=== PATIENT | female | born 1955 | race Caucasian/White ===

== ENCOUNTER 2017-03-11 13:52 | Emergency (ER) | payer SELFPAY ==
[~2017-03-11] VITALS: Ht 182.9 cm; Wt 77.0 kg
[2017-03-11 13:54] VITALS: BP 173/83; PULSE 102; RESP 24; TEMP 98.3; O2SAT 98
--- NOTE | 2017-03-11 14:42 | PD ---
HPI Chief Complaint: Back/ Neck Pain or Injury Time Seen by Provider: 14:28 Travel History International Travel<30 days: No Contact w/Intl Traveler<30days: No Traveled to known affect area: No History of Present Illness HPI 62-year-old female presents for evaluation of lower back pain. 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 She reports that about 14 days ago she lifted something and this caused a twinge of pain in her lower back which resolved. About 10 days ago she began developing left-sided lower back pain that radiates down the posterior left leg. The pain is a sharp shooting pain that is worse with movement, lying down, constant. She denies any additional injuries. Denies bowel or bladder incontinence, saddle anesthesia, abdominal pain, nausea or vomiting, fevers or chills. She was seen at [facility] a few days ago where she reports blood work and urinalysis were performed. She was given a prescription for Bactrim for urinary tract infection. She was given [place] which has not been helping with her symptoms and this prompted reevaluation today. She reports that her dysuria and foul-smelling urine have significantly improved. She has no other complaints. PFSH Past Medical History Autoimmune Disease: Yes Blood Disorders: No Heart Rhythm Problems: No Cancer: No Cardiac Catheterization: No Cardiovascular Problems: Yes (HTN, ) High Cholesterol: No Chest Pain: Yes Congestive Heart Failure: No Coronary Artery Disease: Yes Diabetes: No Genitourinary: No Headaches: Yes Hypertension: No Musculoskeletal: No Neurologic: Yes Psychiatric: No Respiratory: Yes (ASTHMA) Myocardial Infarction: No ?: Not Past Surgical History Abdominal Surgery: No Cardiac Surgery: No Cholecystectomy: Yes Coronary Artery Bypass Graft: No Ear Surgery: No Endocrine Surgery: No Eye Surgery: No Genitourinary Surgery: No Gynecologic Surgery: Yes (UTERINE ABLATION) Oral Surgery: No Pacemaker: No Thoracic Surgery: No Social History Alcohol Use: No Tobacco Use: No Substance Use: No Allergies-Medications (Allergen,Severity, Reaction): Coded Allergies: No Known Allergies (Verified , 03/11/17) Reported Meds & Prescriptions Reported Meds & Active Scripts Active No Active Prescriptions or Reported Medications Review of Systems Except as stated in HPI: all other systems reviewed are Neg Physical Exam Narrative GENERAL: Well-developed well-nourished female who appears to be uncomfortable. SKIN: Warm and dry. No rash, no bruising or soft tissue swelling. HEAD: Atraumatic. Normocephalic. EYES: Pupils equal and round. No scleral icterus. No injection or drainage. ENT: No nasal bleeding or discharge. Mucous membranes pink and moist. NECK: Trachea midline. No JVD. CARDIOVASCULAR: Regular rate and rhythm. No murmur appreciated. RESPIRATORY: No accessory muscle use. Clear to auscultation. Breath sounds equal bilaterally. GASTROINTESTINAL: Abdomen soft, non-tender, nondistended. Hepatic and splenic margins not palpable. MUSCULOSKELETAL: No obvious deformities. Tender to palpation left lumbosacral musculature. There is no tenderness to palpation along the midline spine. The patient has significant pain when attempting to lie down. There is no lower extremity edema. 2+ dorsalis pedis pulse bilaterally. Negative Homans bilaterally. NEUROLOGICAL: Awake and alert. No obvious cranial nerve deficits. Motor grossly within normal limits. Normal speech. PSYCHIATRIC: Appropriate mood and affect; insight and judgment normal. Data Data Last Documented VS Vital Signs Date Time Temp Pulse Resp B/P Pulse Ox O2 Delivery O2 Flow Rate FiO2 03/11/17 13:54 98.3 102 24 173/[address] Lumb Spine W/O Contrast (03/11/17 ) Ketorolac Inj (Toradol Inj) (03/11/17 14:45) Orphenadrine Inj (Norflex Inj) (03/11/17 14:45) MDM Medical Decision Making Medical Screen Exam Complete: Yes Emergency Medical Condition: Yes Medical Record Reviewed: Yes Differential Diagnosis Piriformis syndrome, herniated mucous pulposus, compression fracture, metastasis , AAA, lumbar strain Narrative Course 62-year-old female with 10 days of left-sided lower back pain that radiates down the posterior left leg. CT imaging reveals degenerative changes, dominant abnormality is a left paracentral disc protrusion at L4 to L5 which is likely the etiology of her radicular symptoms. The patient was given a copy of her CT report. She'll be discharged with NSAIDs, muscle relaxants, Lidoderm patches, recommend outpatient follow-up with primary care physician in one to 2 weeks. Diagnosis Primary Impression: Lumbosacral radiculopathy Additional Instructions: Medication as prescribed. Avoid heavy lifting. Follow-up with primary care physician in one to 2 weeks. Return for any emergent medical conditions. Med/Other Pt SpecificInfo: Prescription(s) given Scripts Baclofen 10 Mg Tab10 Mg PO Q8HR PRN (MUSCLE SPASM) 10 Days Ref 0 Prov:Juan Stoner MD 03/11/[address] 75 Mg Tabdr75 Mg PO BID 10 Days Ref 0 Prov:Juan Stoner MD 03/11/17 Lidocaine Patch 12 HR 5 % Patch1 Patch TOPICAL DAILY PRN (PAIN) #1 BOX Ref 1 Remove patch after 12 hours Prov:Juan Stoner MD 03/11/17 Disposition: 01 DISCHARGE HOME Condition: Stable Shaw Shepherd Mar 11, 2017 14:42
[2017-03-11] MEDS ORDERED: ORPHENADRINE INJ 60 MG/2 ML AMP IM ONE (14:45)
[2017-03-11] MEDS ORDERED: KETOROLAC TROMETHAMINE 60 MG/2 ML (IM) VIAL IM ONE (14:45)
--- NOTE | 2017-03-11 17:16 | RADRPT ---
EXAM DATE/TIME: 03/11/2017 15:38 [place] COMPARISON: No previous studies available for comparison. INDICATIONS : Patient complains of low back pain, radiating to posterior left leg. RADIATION DOSE: 35.86 CTDIvol (mGy) MEDICAL HISTORY : Hypertension. Cardiovascular disease SURGICAL HISTORY : Cholecystectomy. ENCOUNTER: Initial ACUITY: 1 day PAIN SCALE: 10/10 LOCATION: Left back TECHNIQUE: Volumetric scanning of the lumbar spine was performed. Multiplanar reconstructions in the sagittal, coronal and oblique axial planes were performed. Using automated exposure control and adjustment of the mA and/or kV according to patient size, radiation dose was kept as low as reasonably achievable t o obtain optimal diagnostic quality images. FINDINGS: Sagittal and coronal reformats demonstrate degenerative changes throughout the lumbar spine. No acute compression fracture seen. No destructive lesion is identified. The paraspinous soft tissues are unr emarkable. T12-L1: There is a degenerated disc with mild osteophytic ridging from the vertebral endplates. The thecal sp gilma and neural foramina are adequate. There is mild facet arthritis bilaterally. L1-L2: There is a small broad-based disc bulge. There is mild facet arthritis bilaterally. The thecal space and neural foramina are adequate. L2-L3: There is a small broad-based disc bulge. The thecal space is adequate. The foramina are adequate. The re is mild facet arthritis bilaterally. L3-L4: There is a degenerated disc with a broad-based disc bulge. The thecal space is adequate. The foramina are adequate. There is moderate facet arthritis bilaterally. L4-L5: There is a degenerated disc with broad-based disc bulge. There is a centered left disc protrusion wit h encroachment on the lateral recess and the foramina. The foramina on the right is adequate. There i s moderate facet arthritis bilaterally. L5-S1: The thecal sac has a normal diameter. No evidence of disc bulge or protrusion. The neural foramina are patent bilaterally. There is mild facet arthritis bilaterally. CONCLUSION: 1. Degenerative changes. The dominant abnormality is a left paracentral disc protrusion at L4-5. Yoly vidual levels were dictated in detail above. Fernando Rosales MD on March 11, 2017 at 16:57 Board Certified Radiologist. This report was verified electronically.
[2017-03-11] MEDS ORDERED: DICL75TA PO (17:24)
[2017-03-11] MEDS ORDERED: BACL10TA PO (17:24)
[2017-03-11] MEDS ORDERED: LIDO1PAD52 TOPICAL (17:24)
== END 2017-03-11 17:57 | disposition home or self-care (01) ==
LOC: NEPK 13:52
DX: M54.17 Radiculopathy, lumbosacral region (principal)
CPT/HCPCS: 72131; 96372; 99285; J1885; J2360